=== PATIENT | female | born 1950 | race Caucasian/White ===

== ENCOUNTER 2016-11-25 16:51 | Emergency (ER) | payer MEDICARE, OTHER | END 2016-11-25 18:55 | disposition home or self-care (01) | LOC: FER 16:51 | DX: S93.524A Sprain of metatarsophalangeal joint of right lesser toe(s), initial encounter (principal); I10 Essential (primary) hypertension; K21.9 Gastro-esophageal reflux disease without esophagitis; Z79.899 Other long term (current) drug therapy; Z23 Encounter for immunization; W20.8XXA Other cause of strike by thrown, projected or falling object, initial encounter; Y92.009 Unspecified place in unspecified non-institutional (private) residence as the place of occurrence of the external cause | CPT/HCPCS: 73630; 90471; 90715 ==

== ENCOUNTER 2020-11-22 13:43 | Emergency (ER) | payer MEDICARE, OTHER ==
[2020-11-22] MEDS ORDERED: CEPHALEXIN500 MG PO (15:12)
== END 2020-11-22 15:28 | disposition home or self-care (01) ==
LOC: FER 13:43
DX: L03.115 Cellulitis of right lower limb (principal); J44.9 Chronic obstructive pulmonary disease, unspecified; Z95.0 Presence of cardiac pacemaker
CPT/HCPCS: 99283

== ENCOUNTER → 2022-01-21 | Day surgery (SDC) | payer MEDICARE, OTHER ==
[~2022-01-21] VITALS: Ht 163.8 cm; Wt 57.1 kg
[~2022-01-21] MED LIST: ASPIRIN EC81 MG PO; AZELASTINE205.5 MCG/; CARISOPRODOL 3350 MG PO; CARVEDILOL3.125 MG PO; CEPHALEXIN500 MG PO; DULOXETINE HCL60 MG PO; ESOMEPRAZOLE MA40 MG PO; FEOSOL325 MG PO; FLONASE ALLER15.8 ML; FOLIC ACID1 MG PO; HYDROCODON-ACE1 EAC6 PO; MONTELUKAST SOD10 MG PO; NEURONTIN300 MG PO; ROSUVASTATIN CA20 MG PO; SPIRONOLACTONE100 M1 PO; VENTOLIN HFA IN18 GM INH
== END | disposition home or self-care (01) ==
LOC: FAS 06:56
DX: R19.5 Other fecal abnormalities (principal); D12.2 Benign neoplasm of ascending colon; D12.0 Benign neoplasm of cecum; D12.4 Benign neoplasm of descending colon; D12.3 Benign neoplasm of transverse colon; D12.5 Benign neoplasm of sigmoid colon; K64.8 Other hemorrhoids; I25.10 Atherosclerotic heart disease of native coronary artery without angina pectoris; I12.9 Hypertensive chronic kidney disease with stage 1 through stage 4 chronic kidney disease, or unspecified chronic kidney disease; N18.9 Chronic kidney disease, unspecified; J44.9 Chronic obstructive pulmonary disease, unspecified; M19.90 Unspecified osteoarthritis, unspecified site; E78.00 Pure hypercholesterolemia, unspecified; I25.2 Old myocardial infarction; F17.200 Nicotine dependence, unspecified, uncomplicated; Z88.8 Allergy status to other drugs, medicaments and biological substances; Z91.040 Latex allergy status; Z79.82 Long term (current) use of aspirin; Z95.810 Presence of automatic (implantable) cardiac defibrillator
CPT/HCPCS: J2704; J7120

== ENCOUNTER → 2022-03-01 | Day surgery (SDC) | payer MEDICARE, OTHER ==
[~2022-03-01] VITALS: Ht 163.8 cm; Wt 57.1 kg
[~2022-03-01] MED LIST changes: +VITAMIN D310 MC3 PO
== END | disposition home or self-care (01) ==
LOC: FAS 07:58
DX: K21.00 Gastro-esophageal reflux disease with esophagitis, without bleeding (principal); K29.60 Other gastritis without bleeding; K31.9 Disease of stomach and duodenum, unspecified; R63.4 Abnormal weight loss; R68.81 Early satiety; J44.9 Chronic obstructive pulmonary disease, unspecified; I25.2 Old myocardial infarction; F17.200 Nicotine dependence, unspecified, uncomplicated; Z95.810 Presence of automatic (implantable) cardiac defibrillator; Z68.21 Body mass index [BMI] 21.0-21.9, adult; Z79.82 Long term (current) use of aspirin; Z79.899 Other long term (current) drug therapy; Z88.8 Allergy status to other drugs, medicaments and biological substances; Z91.040 Latex allergy status
CPT/HCPCS: 88305; J2250; J2704; J7120